=== PATIENT | male | born 1990 | race Caucasian/White ===

== ENCOUNTER 2020-04-16 23:28 | Emergency (ER) | payer BC ==
[2020-04-17] MEDS ORDERED: Alum Hydrox/Mag Hydrox/Simeth 15 ML, Lidocaine 2% 5 ML PO ONE ×2 (00:15)
[2020-04-17 00:34] LABS: BLOOD UREA NITROGEN,BUN 14 mg/dL (7.0-18.0); CARBON DIOXIDE,CO2 28.6 mmol/L (21.0-32.0); CHLORIDE,CL 101 mmol/L (98-107); GLUCOSE RANDOM 95 mg/dL (74-106); POTASSIUM,K 3.6 mmol/L (3.5-5.1); SODIUM,NA 137 mmol/L (136-148)
--- NOTE | 2020-04-17 00:35 | CR ---
INDICATION: Chest pain TECHNIQUE: Chest radiograph 1 view COMPARISON: None FINDINGS: Mediastinum: The mediastinum is normal in appearance. The heart silhouette is normal in size and morphology. Lung: Both lungs are unremarkable in appearance. No sign of pleural effusion seen. No pneumothorax is identified. Bone and Soft tissue: Unremarkable for age. IMPRESSION: 1. No acute cardiopulmonary disease is seen. Dictated by: Bill Ash MD @ 04/17/2020 00:35:15 (Electronically Signed)
--- NOTE | 2020-04-17 01:03 | EDM.PDOC ---
ED HPI GENERAL MEDICAL PROBLEM - General Chief Complaint: Chest Pain Stated Complaint: CHEST PAIN Time Seen by Provider: 04/16/20 23:52 - History of Present Illness INITIAL COMMENTS - FREE TEXT/NARRATIVE: CHIEF COMPLAINT(S): Chest pain HISTORY OF PRESENT ILLNESS: This is a 29-year-old man without any significant past medical history except for migraines who comes to the emergency department with a chief complaint of chest pain. The patient states that approximately 24 hours ago while he was at work he does started to experience chest pain located in the epigastric region of his chest. He denies any radiation of this pain or associated symptoms such as shortness of breath, nausea, vomiting, or diaphoresis. He describes the pain as dull and constant and mild 1-2 out of 10. He describes it more like a discomfort. He states that he took some Davey aspirin which helped mildly and denies any aggravating symptoms. He states that he does notice that at night this area does seem to worsen with the pain and that he does get some acid reflux. He states that he also had some mild blurry vision today which lasted for about 2 hours and that he usually gets this when he looks at screens. He states that at work he uses some type of equipment that he stares at a screen most of the day. He denies any headache currently, nausea, or vomiting. He denies any numbness, tingling, or weakness. He denies any corrective lens use. He states that he does have a family history of heart disease which include his grandpa who of a heart attack at age 78, an uncle who at 48 from a heart attack otherwise he does not know any other family history. He denies any family history of sudden onset . REVIEW OF SYSTEMS: Constitutional: Denies fever, chills. Eyes: Denies eye pain Ears, Nose, Mouth, & Throat: Denies earache Cardiovascular: Positive for chest pain Respiratory: Denies shortness of breath Gastrointestinal: Denies Nausea, vomiting, diarrhea, hematochezia. Genitourinary: Denies hematuria Skin:Denies a rash Neurological: Denies blurred vision, numbness, tingling, weakness Psychiatric: Denies depression PAST MEDICAL HISTORY: As per history of present illness and as reviewed below otherwise noncontributory. SURGICAL HISTORY: As per history of present illness and as reviewed below otherwise noncontributory. SOCIAL HISTORY: As per history of present illness and as reviewed below o therwise noncontributory. FAMILY HISTORY: As per history of present illness and as reviewed below otherwise noncontributory. EXAMINATION OF ORGAN SYSTEMS/BODY AREAS: Constitutional: Blood pressure was 145/77, heart rate 77, respiratory rate 18 with an oxygen saturation in 97% on room air. Temperature 36.1 General: Overall well-appearing man who is in no acute distress Psychiatric: Appropriate mood and affect. Eyes: No scleral icterus or conjunctival erythema pupils are equal round reactive to light. Extraocular movements intact. No vertical or horizontal nystagmus. ENMT: Moist mucous membranes. No pharyngeal erythema Cardiovascular: Regular, rate, and rhythm. No gallops, murmurs, or rubs. Bilateral upper extremity pulses symmetric and intact. No peripheral edema. No JVD. Respiratory: Lungs clear to auscultation bilaterally. No wheezes, rales, or rhonchi. Gastrointestinal: Soft, non-tender, non-distended. Normoactive bowel sounds Genitourinary: No suprapubic tenderness Musculoskeletal: Normal range of motion. Skin: No lesions or abrasions. Neurological: Alert, GCS 15 strength and sensation grossly intact in upper and lower extremities bilaterally. MEDICAL DECISION MAKING AND COURSE IN THE ED WITH INTERPRETATION/REVIEW OF DIAGNOSTIC STUDIES: This is a 29-year-old man without any significant past medical history except for migraines who comes to the emergency department with acute epigastric/chest pain been going on for approximately 24 hours without any associated symptoms. At this time given his age I do believe this is likely secondary to reflux versus gastritis however given his family history will obtain a troponin and basic labs. EKG was obtained which did not reveal any acute signs of ischemia however there was some artifact. We will provide the patient with a GI cocktail. Laboratory: CBC is unremarkable. CMP reveals elevated creatinine of 1.4 otherwise unremarkable. Troponin x1 is negative. The radiological images were viewed by myself along with reading the report from the radiologist. Chest x-ray does not reveal any acute cardiopulmonary process. Twelve-lead EKG interpreted by myself. Normal sinus rhythm at a rate of 86beats per minute. Normal axis. ND interval is 163ms. QRS duration is approximately 90ms. ST segments are normal without elevations or depressions. No Q waves present. Hypertrophy not noted prior EKGs in our system. There is suggestion of nonspecific intraventricular conduction delay. Interpretation: Normal sinus rhythm with nonspecific interventricular conduction delay however limited secondary to baseline artifact. Twelve-lead EKG interpreted by myself. Normal sinus rhythm at a rate of 79beats per minute. Normal axis. ND interval is 170ms. QRS duration is approximately [address] segments are normal without elevations or depressions. No Q waves present. Hypertrophy not noted. Again there is a suggestion of a nonspecific intraventricular conduction delay. Interpretation: Normal sinus rhythm with nonspecific intraventricular conduction delay After labs and imaging I did discuss results with the patient. I discussed with him at this time he be stable for discharge. I did discuss that his creatinine was elevated and that he need to follow-up with his primary care physician. I discussed that if he had any worsening chest pain he need to return to the emergency department however I do believe this secondary to reflux disease. I discussed that he providing him with famotidine to be used at night. He was amenable discharge at this time and had no further questions DISPOSITION: The patient was discharged home in stable condition. The patient will follow up with primary care physician within 2 to 3 days CONDITION: Fair PROCEDURES: None FINAL IMPRESSION(S)/DIAGNOSES: 1. Acute chest pain likely secondary to GERD 2. Elevated creatinine Clarence Ramos M.D. chest pain Pain Score (Numeric/FACES): 2 - Related Data Allergies Allergy/AdvReac Type Severity Reaction Status Date / Time Penicillins Allergy Other Verified 04/16/20 23:32 Home Meds: Home Meds Famotidine [Pepcid] 20 mg PO DAILY #30 tablet 04/17/20 [Rx] Past Medical History HEENT History: Reports: None Cardiovascular History: Reports: None Respiratory History: Reports: None Gastrointestinal History: Reports: None Genitourinary History: Reports: None Musculoskeletal History: Reports: None Neurological History: Reports: None Psychiatric History: Reports: None Endocrine/Metabolic History: Reports: None Insulin Pump Model and Tape Coater: None Hematologic History: Reports: None Immunologic History: Reports: None Oncologic (Cancer) History: Reports: None Dermatologic History: Reports: None - Infectious Disease History Infectious Disease History: Reports: None Social & Family History - Tobacco Use Tobacco Use Status *Q: Never Tobacco User Second Hand Smoke Exposure: No - Caffeine Use Caffeine Use: Reports: Energy Drinks - Recreational Drug Use Recreational Drug Use: No ED ROS GENERAL - Review of Systems Review Of Systems: See Below ED EXAM, GENERAL - Physical Exam Exam: See Below Course - Vital Signs Last Recorded V/S: Last Vital Signs Temp 36.1 C 04/17/20 01:20 Pulse 81 04/17/20 01:20 Resp 18 04/17/20 01:20 BP 135/83 04/17/20 01:20 Pulse Ox 97 04/17/20 01:20 - Orders/Labs/Meds Labs: Laboratory Tests 04/16/20 04/16/20 Range/Units 23:45 23:45 WBC 9.52 (4.0-11.0) K/uL RBC 5.77 (4.50-5.90) M/uL Hgb 17.0 (13.0-17.0) g/dL Hct 49.9 (38.0-50.0) % MCV 86.5 (80.0-98.0) fL MCH 29.5 (27.0-32.0) pg MCHC 34.1 (31.0-37.0) g/dL RDW Std Deviation 43.3 (28.0-62.0) fl RDW Coeff of Madai 14 (11.0-15.0) % Plt Count 300 (150-400) K/uL MPV 9.80 (7.40-12.00) fL Neut % (Auto) 63.2 (48.0-80.0) % Lymph % (Auto) 27.1 (16.0-40.0) % Cottle % (Auto) 9.0 (0.0-15.0) % Eos % (Auto) 0.5 (0.0-7.0) % Baso % (Auto) 0.2 (0.0-1.5) % Neut # (Auto) 6.0 H (1.4-5.7) K/uL Lymph # (Auto) 2.6 H (0.6-2.4) K/uL Cottle # (Auto) 0.9 H (0.0-0.8) K/uL Eos # (Auto) 0.1 (0.0-0.7) K/uL Baso # (Auto) 0.0 (0.0-0.1) K/uL Nucleated RBC % 0.0 /100WBC Nucleated RBCs # 0 K/uL Sodium 137 (136-148) mmol/L Potassium 3.6 (3.5-5.1) mmol/L Chloride 101 (98-107) mmol/L Carbon Dioxide 28.6 (21.0-32.0) mmol/L BUN 14 (7.0-18.0) mg/dL Creatinine 1.4 H (0.8-1.3) mg/dL Est Cr Clr Drug Dosing 97.23 mL/min Estimated GFR (MDRD) 59.5 ml/min Glucose 95 (74-106) mg/dL Calcium 9.1 (8.5-10.1) mg/dL Total Bilirubin 0.7 (0.2-1.0) mg/dL AST 18 (15-37) IU/L ALT 61 (14-63) IU/L Alkaline Phosphatase 45 L (46-116) U/L Troponin I < 0.050 (0.000-0.056) ng/mL Total Protein 8.0 (6.4-8.2) g/dL Albumin 4.0 (3.4-5.0) g/dL Globulin 4.0 (2.6-4.0) g/dL Albumin/Globulin Ratio 1.0 (0.9-1.6) Meds: Medications Discontinued Medications Generic Name Dose Route Start Last Admin Trade Name Freq PRN Reason Stop Dose Admin Al Hydroxide/Mg Hydroxide 15 0 ml 04/17/20 00:15 04/17/20 00:35 ml/ Lidocaine HCl 5 ml PO 04/17/20 00:16 1 each ONETIME ONE Administration Departure - Departure Time of Disposition: 01:00 Disposition: Home, Self-Care 01 Condition: Fair Clinical Impression: Elevated serum creatinine Chest pain Qualifiers: Chest pain type: unspecified Qualified Code(s): R07.9 - Chest pain, unspecified GERD (gastroesophageal reflux disease) Qualifiers: Esophagitis presence: without esophagitis Qualified Code(s): K21.9 - Gastro- esophageal reflux disease without esophagitis Prescriptions: Famotidine [Pepcid] 20 mg PO DAILY #30 tablet Instructions: Food Choices for Gastroesophageal Reflux Disease, Adult, [id number], Nonspecific Chest Pain, Adult, [id number], Serum Creatinine Test, Gastroesophageal Reflux Disease, Adult, [id number] Referrals: PCP,None [Primary Care Provider] - Forms: ED Department Discharge Additional Instructions: You were evaluated today on an emergent basis. At this time your work-up is negative. I do believe your symptoms are likely secondary from reflux disease. I recommend using famotidine 20 mg at bedtime daily. In addition your creatinine was elevated today indicating some kidney dysfunction. I recommend close follow-up with your primary care physician for continued monitoring. Please return to the emergency department for any new or worsening symptoms such as worsening chest pain or shortness of breath. [facility] [address] [place] [id number] [facility] [address] [place] [id number] The patient is informed of any results of their evaluation and diagnostic workup and all questions are answered. They are given discharge instructions and return precautions. The patient is stable for discharge. The patient states they understand and agree with the plan and that they will return if their symptoms get worse or if they have any new concerns. The following information is given to patients seen in the emergency department who are being discharged to home. This information is to outline your options for follow-up care. We provide all patients seen in our emergency department with a follow-up referral. The need for follow-up, as well as the timing and circumstances, are variable depending upon the specifics of your emergency department visit. If you don't have a primary care physician on staff, we will provide you with a referral. We always advise you to contact your personal physician following an emergency department visit to inform them of the circumstance of the visit and for follow-up with them and/or the need for any referrals to a consulting specialist. The emergency department will also refer you to a specialist when appropriate. This referral assures that you have the opportunity for follow-up care with a specialist. All of these measure are taken in an effort to provide you with optimal care, which includes your follow-up. Under all circumstances we always encourage you to contact your private physician who remains a resource for coordinating your care. When calling for follow-up care, please make the office aware that this follow-up is from your recent emergency room visit. If for any reason you are refused follow-up, please contact the [facility] Emergency Department at and asked to speak to the emergency department charge nurse. Sepsis Event Note (ED) - Evaluation Sepsis Screening Result: No Definite Risk - Focused Exam Vital Signs: Vital Signs Temp Pulse Resp BP Pulse Ox 04/17/20 01:20 36.1 C 81 18 135/83 97 04/16/20 23:30 36.1 C 77 18 145/77 H 97
== END 2020-04-17 01:20 | disposition home or self-care (01) ==
LOC: MW.ED 23:28
DX: K21.9 Gastro-esophageal reflux disease without esophagitis (principal); R74.8 Abnormal levels of other serum enzymes; Z88.0 Allergy status to penicillin; Z79.899 Other long term (current) drug therapy
CPT/HCPCS: 36415; 71045; 80053; 84484; 85025; 93005; 99285; A9270; 93010; 99284